=== PATIENT | female | born 1965 | race African-American/Black ===

== ENCOUNTER 2018-10-13 16:37 | Emergency (ER) | payer OTHER ==
--- NOTE | 2018-10-13 16:46 | PDOC ---
Rapid Medical Evaluation Chief Complaint: Injury Time Seen by Provider: 10/13/18 16:40 Medical Evaluation: Allergies Allergy/AdvReac Type Severity Reaction Status Date / Time No Known Allergies Allergy Verified 05/12/13 18:02 Vital Signs Temp Pulse Resp BP Pulse Ox 97.6 F 75 18 122/54 L 100 10/13/18 16:41 10/13/18 16:41 10/13/18 16:41 10/13/18 16:41 10/13/18 16:41 10/13/18 16:45 Pt c/o: tripped outside landing on both knees, no loc, unknown last tetanus Pt on brief exam: noted abrasions to mame knees, ambulatory Pt ordered for: aTdap Pt to proceed to the ED Discharge Disposition - Diagnosis Knee pain, bilateral Qualifiers: Chronicity: acute Qualified Code(s): M25.561 - Pain in right knee - Discharge Dispostion Disposition: HOME Condition at time of disposition: Stable - Prescriptions Prescriptions: Ibuprofen 800 mg PO ACDIN 7 Days #30 tablet Mupirocin Ointment [Bactroban 2% Ointment -] 1 applic TP BID 5 Days #60 gm - Referrals - Patient Instructions Printed Discharge Instructions: DI for Abrasion, DI for Knee Pain Additional Instructions: Your xray was negative for acute fracture and dislocation Please take Motrin for pain Follow up with your primary care doctor return to the ER if worsening symptoms occurs - Post Discharge Activity
[2018-10-13 16:48] VITALS: BP 122/54; PULSE 75; TEMP 97.6; BMI 31.3
[2018-10-13] MEDS ORDERED: DIPHTH,PERTUSS(ACELL),TET 0.5 ML DISP.SYRIN IM ONE ×2 (17:00→17:30)
[2018-10-13] MEDS ORDERED: IBUPROFEN 400 MG TABLET (FP) PO ONE (17:09)
--- NOTE | 2018-10-13 17:09 | PDOC ---
History of Present Illness - General Chief Complaint: Injury Stated Complaint: FALL Time Seen by Provider: 10/13/18 16:40 History Source: Patient (b/l knee abrasion, s/p fall) Exam Limitations: No Limitations Past History - Travel Traveled outside of the country in the last 30 days: No Close contact w/someone who was outside of country & ill: No - Past Medical History Allergies/Adverse Reactions: Allergies Allergy/AdvReac Type Severity Reaction Status Date / Time No Known Allergies Allergy Verified 05/12/13 18:02 Home Medications: Ambulatory Orders Cholecalciferol (Vitamin D3) [D3-50] 50,000 unit PO WEEKLY #4 capsule 05/19/18 Ammonium Lactate Lotion [Lac-Hydrin 12] 1 applic TP ASDIR 30 Days #1 bottle Emtricitab/Rilpiviri/Tenof Ala [Odefsey Tablet] 1 each PO DAILY #30 tablet 10/06 Hydrocortisone 1% Cream [Hytone 1% Cream -] 1 applic TP TID #1 tube 10/06/18 Loratadine [Claritin -] 1 tab PO DAILY #30 tablet 10/06/18 Methylcellulose (with Sugar) [Fiber Therapy Powder] 1 scoop PO DAILY PRN #1 bottle 10/06/18 Multivitamin,Therapeutic [Thera] 1 each PO DAILY #30 tablet 10/06/18 Simethicone [Gas Relief] 1 cap PO BID PRN #30 capsule MDD 2 10/06/18 Calcium Polycarbophil [Fiber-Tabs] 1 tab PO TID PRN #90 tablet MDD 3 10/10/18 Ibuprofen 800 mg PO ACDIN 7 Days #30 tablet 10/13/18 Mupirocin Ointment [Bactroban 2% Ointment -] 1 applic TP BID 5 Days #60 gm 10/13 Anemia: No Asthma: No Cancer: No Cardiac Disorders: No CVA: No COPD: No CHF: No Dementia: No Diabetes: No GI Disorders: No Disorders: No HTN: No Hypercholesterolemia: No Liver Disease: No Seizures: No Thyroid Disease: No Other medical history: uterine fibroid - Surgical History Abdominal Surgery: Yes (FIBROID REMOVED) GI Surgery: No - Immunization History Td Vaccination: Yes - Suicide/Smoking/Psychosocial Hx Smoking Status: No Smoking History: Never smoked Have you smoked in the past 12 months: No Number of Cigarettes Smoked Daily: 0 Cigars Per Day: 0 Information on smoking cessation initiated: No Hx Alcohol Use: No Drug/Substance Use Hx: No Substance Use Type: None Hx Substance Use Treatment: No Review of Systems - Review of Systems Able to Perform ROS?: Yes Is the patient limited Croatian proficient: No Constitutional: No: Chills, Fever Musculoskeletal: Yes: Joint Pain (b/l knee abrasion). No: Back Pain, Muscle Pain Integumentary: Yes: Bruising (b/l abrasion in anterior aspect of knee L>R) *Physical Exam - Vital Signs Last Vital Signs Temp Pulse Resp BP Pulse Ox 97.6 F 75 18 122/54 L 100 10/13/18 16:41 10/13/18 16:41 10/13/18 16:41 10/13/18 16:41 10/13/18 16:41 - Physical Exam General Appearance: Yes: Nourished Extremity: positive: Normal Capillary Refill, Normal Range of Motion, Tender (b/ l knee pain with abrasions) Neurologic: positive: vp integrity II-XII NML intact, Fully Oriented, Alert, Normal Mood/ Affect, Normal Response, Motor Strength 5/5 ED Treatment Course - RADIOLOGY Radiology Studies Ordered: Category Date Time Status KNEE 3 POS-LEFT [RAD] Stat Radiology 10/13/18 16:59 Ordered KNEE 4 POS-RIGHT [RAD] Stat Radiology 10/13/18 16:59 Ordered Medical Decision Making - Medical Decision Making 52y/o F with b/l knee pain after a mechanical fall 1hr today,denies lOC or head trauma Exam with b/l knee abrasions xray negative for fracture tetanus updated *DC/Admit/Observation/Transfer Diagnosis at time of Disposition: Knee pain, bilateral Qualifiers: Chronicity: acute Qualified Code(s): M25.561 - Pain in right knee - Discharge Dispostion Disposition: HOME Condition at time of disposition: Stable - Prescriptions Prescriptions: Ibuprofen 800 mg PO ACDIN 7 Days #30 tablet Mupirocin Ointment [Bactroban 2% Ointment -] 1 applic TP BID 5 Days #60 gm - Referrals - Patient Instructions Printed Discharge Instructions: DI for Abrasion, DI for Knee Pain Additional Instructions: Your xray was negative for acute fracture and dislocation Please take Motrin for pain Follow up with your primary care doctor return to the ER if worsening symptoms occurs - Post Discharge Activity
== END 2018-10-13 18:17 | disposition home or self-care (01) ==
LOC: JERFT 16:37
PROC: 3E0234Z Introduction of Serum, Toxoid and Vaccine into Muscle, Percutaneous Approach (ICD-10-PCS; principal; 2018-10-13)
DX: S80.212A Abrasion, left knee, initial encounter (principal); S80.211A Abrasion, right knee, initial encounter; W01.0XXA Fall on same level from slipping, tripping and stumbling without subsequent striking against object, initial encounter; Y93.9 Activity, unspecified; Y92.9 Unspecified place or not applicable
CPT/HCPCS: 73562-TC-LT-FY; 73564-TC-RT-FY; 90715; 99282-25

== ENCOUNTER 2023-09-14 19:49 | Emergency (ER) | payer OTHER ==
[2023-09-14 19:59] VITALS: BP 120/57; PULSE 97; RESP 18; TEMP 98.8; BMI 28.1
== END 2023-09-14 22:04 | disposition home or self-care (01) ==
LOC: JERFT 19:49
DX: U07.1 COVID-19 (principal); R09.81 Nasal congestion; R53.83 Other fatigue
CPT/HCPCS: 0241U-QW; 99283-25